=== PATIENT | male | born 1955 | race African-American/Black ===

== ENCOUNTER 2020-12-06 07:51 | Day surgery (SDC) | payer BC ==
[2020-12-02 10:07] VITALS: BMI 23.2
[2020-12-06] MEDS ORDERED: PROPOFOL 20 ML ONE ×2 (09:55)
[2020-12-06] MEDS ORDERED: MIDAZOLAM HCL 2 MG/2 ML SINGLE DOSE VIAL ONE (09:55)
[2020-12-06] MEDS ORDERED: ONDANSETRON 4 MG/2 ML VIAL ONE (10:14)
[2020-12-06] MEDS ORDERED: oxyCODONE HCL 5 MG TABLET ONE (10:27)
[2020-12-06 10:38] VITALS: TEMP 98
[2020-12-06 11:31] VITALS: BP 117/73; PULSE 88
== END 2020-12-06 11:25 | disposition home or self-care (01) ==
LOC: FASU 07:51
PROVIDERS: ATTEND Orthopaedic Surgery Orthopaedic Surgery of the Spine
PROC: 0RNJXZZ Release Right Shoulder Joint, External Approach (ICD-10-PCS; principal; 2020-12-06 10:07)
DX: M24.611 Ankylosis, right shoulder (principal)